=== PATIENT | female | born 1955 | race Caucasian/White ===

== ENCOUNTER 2024-12-05 19:55 | Inpatient (IN) | payer OTHER ==
[2024-12-06] MEDS ORDERED: Nitroglycerin 0.4 MG TAB (25 Tab Bottle) SL PRN (00:20)
[2024-12-06] MEDS ORDERED: Ondansetron PF 4 MG/2 ML Vial IVP PRN (02:05)
[2024-12-06] MEDS ORDERED: Dextrose 50% Abboject 50 ML SYRINGE SLOW IVP PRN (02:15)
[2024-12-06] MEDS ORDERED: Glucagon 1 MG/ML KIT IM PRN (02:15)
[2024-12-06 05:10] VITALS: BMI 45.5
[2024-12-06] MEDS: Aspirin Chewable 81 MG TAB PO SCH ×2 (06:08→09:48)
[2024-12-06 06:37] LABS: #Basophils 0.03 10x3/uL (0.0-0.2); #Eosinophils 0.19 10x3/uL (0.0-0.7); #Monocytes 0.36 10x3/uL (0.11-0.59); #Neutrophils 6.14 10x3/uL (1.40-6.50); %Basophils 0.4 % (0.0-1.0); %Eosinophils 2.4 % (0.0-10.0); %Lymphocytes 13.2 % (21.0-51.0); %Monocytes 4.6 % (0.0-10.0); %Neutrophils 79.0 % (42.0-75.0); Hematocrit 35.3 % (36.0-47.0); Hemoglobin 10.5 g/dL (12.0-16.0); Mean Corpuscular Hemoglobin 26.1 pg (27.0-31.0); Mean Corpuscular Volume 87.8 fL (78.0-98.0); Platelet Count 268 10x3/uL (130-400); Red Blood Cell (RBC) Count 4.02 mill/uL (4.20-5.40); White Blood Cell (WBC) Count 7.78 10x3/uL (4.8-10.8)
[2024-12-06 06:46] LABS: #Basophils Less than 0.03 10x3/uL (0.0-0.2); #Eosinophils 0.17 10x3/uL (0.0-0.7); #Monocytes 0.23 10x3/uL (0.11-0.59); #Neutrophils 3.42 10x3/uL (1.40-6.50); %Basophils 0.4 % (0.0-1.0); %Eosinophils 3.6 % (0.0-10.0); %Lymphocytes 19.3 % (21.0-51.0); %Monocytes 4.8 % (0.0-10.0); %Neutrophils 71.7 % (42.0-75.0); Hematocrit 35.4 % (36.0-47.0); Hemoglobin 10.7 g/dL (12.0-16.0); Mean Corpuscular Hemoglobin 26.2 pg (27.0-31.0); Mean Corpuscular Volume 86.8 fL (78.0-98.0); Platelet Count 254 10x3/uL (130-400); Red Blood Cell (RBC) Count 4.08 mill/uL (4.20-5.40); White Blood Cell (WBC) Count 4.77 10x3/uL (4.8-10.8)
[2024-12-06 07:35] LABS: ALT (SGPT) 165 U/L (Less than 34); AST (SGOT) 293 U/L (11-34); Albumin 3.1 g/dL (3.1-4.5); Alkaline Phosphatase 120 U/L (40-110); Anion Gap 15 mmol/L (10-20); BUN (Urea Nitrogen) 19 mg/dL (9.8-20.1); Bilirubin, Total 0.5 mg/dL (0.3-1.2); Calc. Creatinine Clearance 155 mL/min (70-130); Calcium 8.6 mg/dL (7.8-10.44); Carbon Dioxide 25 mmol/L (23-31); Chloride 107 mmol/L (98-107); Globulin 3.5 g/dL (2.4-3.5); Glucose 170 mg/dL (80-115); Potassium 4.0 mmol/L (3.5-5.1); Sodium 143 mmol/L (136-145)
[2024-12-06] MEDS: Heparin 5,000 UNITS/ML VIAL SC SCH (08:02)
[2024-12-06 08:16] LABS: ALT (SGPT) 534 U/L (Less than 34); AST (SGOT) 598 U/L (11-34); Albumin 3.1 g/dL (3.1-4.5); Alkaline Phosphatase 169 U/L (40-110); Anion Gap 14 mmol/L (10-20); BUN (Urea Nitrogen) 17 mg/dL (9.8-20.1); Bilirubin, Total 1.5 mg/dL (0.3-1.2); Calc. Creatinine Clearance 179 mL/min (70-130); Calcium 8.7 mg/dL (7.8-10.44); Carbon Dioxide 25 mmol/L (23-31); Cardiac Risk 1.9 (Less than 4.5); Chloride 107 mmol/L (98-107); Cholesterol 73 mg/dl (< 200 Desired); Globulin 3.6 g/dL (2.4-3.5); Glucose 124 mg/dL (80-115); HDL Cholesterol 38 mg/dL (>60 Neg Risk); LDL Cholesterol, Calculated 27 mg/dL; Magnesium 1.8 mg/dL (1.6-2.6); Potassium 4.1 mmol/L (3.5-5.1); Sodium 142 mmol/L (136-145); Triglycerides 42 mg/dL (Less than 150)
[2024-12-06] MEDS: Guaifenesin DM 100-10/5 ML UDCUP PO PRN (11:39)
[2024-12-06] MEDS ORDERED: Albuterol 2.5 MG (3 mL) NEB NEB PRN (19:00)
[2024-12-06] MEDS: Mometasone 100 MCG/Formoterol 5 MCG 120 PUFF INHALER INH SCH (19:28)
[2024-12-06] MEDS: Gabapentin 100 MG CAP PO SCH (20:35)
[2024-12-06] MEDS: Apixaban 5 MG TAB PO SCH (20:35)
[2024-12-07 05:28] LABS: #Basophils 0.03 10x3/uL (0.0-0.2); #Eosinophils 0.39 10x3/uL (0.0-0.7); #Monocytes 0.31 10x3/uL (0.11-0.59); #Neutrophils 5.71 10x3/uL (1.40-6.50); %Basophils 0.4 % (0.0-1.0); %Eosinophils 5.1 % (0.0-10.0); %Lymphocytes 15.9 % (21.0-51.0); %Monocytes 4.0 % (0.0-10.0); %Neutrophils 74.3 % (42.0-75.0); Hematocrit 38.3 % (36.0-47.0); Hemoglobin 11.7 g/dL (12.0-16.0); Mean Corpuscular Hemoglobin 26.4 pg (27.0-31.0); Mean Corpuscular Volume 86.5 fL (78.0-98.0); Platelet Count 265 10x3/uL (130-400); Red Blood Cell (RBC) Count 4.43 mill/uL (4.20-5.40); White Blood Cell (WBC) Count 7.68 10x3/uL (4.8-10.8)
[2024-12-07 06:03] LABS: ALT (SGPT) 414 U/L (Less than 34); AST (SGOT) 208 U/L (11-34); Albumin 3.2 g/dL (3.1-4.5); Alkaline Phosphatase 147 U/L (40-110); Anion Gap 13 mmol/L (10-20); BUN (Urea Nitrogen) 14 mg/dL (9.8-20.1); Bilirubin, Total 0.6 mg/dL (0.3-1.2); Calc. Creatinine Clearance 173 mL/min (70-130); Calcium 9.1 mg/dL (7.8-10.44); Carbon Dioxide 26 mmol/L (23-31); Cardiac Risk 2.6 (Less than 4.5); Chloride 106 mmol/L (98-107); Cholesterol 91 mg/dl (< 200 Desired); Globulin 3.6 g/dL (2.4-3.5); Glucose 158 mg/dL (80-115); HDL Cholesterol 35 mg/dL (>60 Neg Risk); LDL Cholesterol, Calculated 42 mg/dL; Potassium 3.9 mmol/L (3.5-5.1); Sodium 141 mmol/L (136-145); Triglycerides 68 mg/dL (Less than 150)
[2024-12-07 06:25] LABS: Thyroid Stimulating Hormone 2.2765 uIU/mL (0.35-4.94)
[2024-12-07 06:31] LABS: Hep A IgM AB NONREACTIVE (NonReactive); Hep A IgM S/CO 0.19 S/CO (0-0.79); Hep B Core IgM Index 0.11 S/CO (0-0.79); Hep B Surf Ag NONREACTIVE S/CO (NonReactive); Hep C IgG Ab NONREACTIVE S/CO (NonReactive); Hep C Index 0.06 S/CO (0-0.79)
[2024-12-07] MEDS: Theophylline 300 MG ER.TAB PO SCH (09:03)
[2024-12-07] MEDS: PNEUMOC 20-VAL CONJ-DIP CRM/PF 0.5 ML SYRINGE IM ONE (10:57)
[2024-12-07] MEDS ORDERED: Iopamidol-370 76% 500 ML MDV (1 ML CHARGE) ONE (12:49)
[2024-12-07] MEDS: Acetaminophen 325 MG TAB PO SCH (21:52)
[2024-12-08 04:49] LABS: #Basophils 0.03 10x3/uL (0.0-0.2); #Eosinophils 0.30 10x3/uL (0.0-0.7); #Monocytes 0.39 10x3/uL (0.11-0.59); #Neutrophils 5.26 10x3/uL (1.40-6.50); %Basophils 0.4 % (0.0-1.0); %Eosinophils 4.0 % (0.0-10.0); %Lymphocytes 19.2 % (21.0-51.0); %Monocytes 5.2 % (0.0-10.0); %Neutrophils 70.8 % (42.0-75.0); Hematocrit 36.5 % (36.0-47.0); Hemoglobin 10.8 g/dL (12.0-16.0); Mean Corpuscular Hemoglobin 26.0 pg (27.0-31.0); Mean Corpuscular Volume 87.7 fL (78.0-98.0); Platelet Count 260 10x3/uL (130-400); Red Blood Cell (RBC) Count 4.16 mill/uL (4.20-5.40); White Blood Cell (WBC) Count 7.44 10x3/uL (4.8-10.8)
[2024-12-08 05:29] LABS: ALT (SGPT) 241 U/L (Less than 34); AST (SGOT) 65 U/L (11-34); Albumin 3.0 g/dL (3.1-4.5); Alkaline Phosphatase 113 U/L (40-110); Anion Gap 9 mmol/L (10-20); BUN (Urea Nitrogen) 17 mg/dL (9.8-20.1); Bilirubin, Total 0.3 mg/dL (0.3-1.2); Calc. Creatinine Clearance 176 mL/min (70-130); Calcium 8.8 mg/dL (7.8-10.44); Carbon Dioxide 29 mmol/L (23-31); Chloride 106 mmol/L (98-107); Globulin 3.5 g/dL (2.4-3.5); Glucose 117 mg/dL (80-115); Potassium 3.7 mmol/L (3.5-5.1); Sodium 140 mmol/L (136-145)
[2024-12-09 05:20] LABS: #Basophils 0.03 10x3/uL (0.0-0.2); #Eosinophils 0.25 10x3/uL (0.0-0.7); #Monocytes 0.33 10x3/uL (0.11-0.59); #Neutrophils 5.15 10x3/uL (1.40-6.50); %Basophils 0.4 % (0.0-1.0); %Eosinophils 3.5 % (0.0-10.0); %Lymphocytes 19.6 % (21.0-51.0); %Monocytes 4.6 % (0.0-10.0); %Neutrophils 71.8 % (42.0-75.0); Hematocrit 37.4 % (36.0-47.0); Hemoglobin 11.3 g/dL (12.0-16.0); Mean Corpuscular Hemoglobin 26.3 pg (27.0-31.0); Mean Corpuscular Volume 87.2 fL (78.0-98.0); Platelet Count 249 10x3/uL (130-400); Red Blood Cell (RBC) Count 4.29 mill/uL (4.20-5.40); White Blood Cell (WBC) Count 7.18 10x3/uL (4.8-10.8)
[2024-12-09 05:37] LABS: ALT (SGPT) 161 U/L (Less than 34); AST (SGOT) 34 U/L (11-34); Albumin 3.0 g/dL (3.1-4.5); Alkaline Phosphatase 104 U/L (40-110); Anion Gap 14 mmol/L (10-20); BUN (Urea Nitrogen) 16 mg/dL (9.8-20.1); Bilirubin, Total 0.4 mg/dL (0.3-1.2); Calc. Creatinine Clearance 206 mL/min (70-130); Calcium 8.6 mg/dL (7.8-10.44); Carbon Dioxide 24 mmol/L (23-31); Chloride 108 mmol/L (98-107); Globulin 3.7 g/dL (2.4-3.5); Glucose 115 mg/dL (80-115); Potassium 3.9 mmol/L (3.5-5.1); Sodium 142 mmol/L (136-145)
[2024-12-10 04:47] LABS: ALT (SGPT) 112 U/L (Less than 34); AST (SGOT) 22 U/L (11-34); Albumin 3.0 g/dL (3.1-4.5); Alkaline Phosphatase 94 U/L (40-110); Anion Gap 12 mmol/L (10-20); BUN (Urea Nitrogen) 17 mg/dL (9.8-20.1); Bilirubin, Total 0.4 mg/dL (0.3-1.2); Calc. Creatinine Clearance 202 mL/min (70-130); Calcium 8.6 mg/dL (7.8-10.44); Carbon Dioxide 28 mmol/L (23-31); Chloride 106 mmol/L (98-107); Globulin 3.8 g/dL (2.4-3.5); Glucose 112 mg/dL (80-115); Potassium 3.8 mmol/L (3.5-5.1); Sodium 142 mmol/L (136-145)
[2024-12-10 05:28] LABS: #Basophils 0.04 10x3/uL (0.0-0.2); #Eosinophils 0.31 10x3/uL (0.0-0.7); #Monocytes 0.40 10x3/uL (0.11-0.59); #Neutrophils 5.40 10x3/uL (1.40-6.50); %Basophils 0.5 % (0.0-1.0); %Eosinophils 4.1 % (0.0-10.0); %Lymphocytes 19.0 % (21.0-51.0); %Monocytes 5.2 % (0.0-10.0); %Neutrophils 70.8 % (42.0-75.0); Hematocrit 38.3 % (36.0-47.0); Hemoglobin 11.8 g/dL (12.0-16.0); Mean Corpuscular Hemoglobin 26.6 pg (27.0-31.0); Mean Corpuscular Volume 86.3 fL (78.0-98.0); Platelet Count 272 10x3/uL (130-400); Red Blood Cell (RBC) Count 4.44 mill/uL (4.20-5.40); White Blood Cell (WBC) Count 7.63 10x3/uL (4.8-10.8)
[2024-12-11 06:10] LABS: %Neutrophils 72.4 % (42.0-75.0)
[2024-12-11 06:45] LABS: #Basophils 0.03 10x3/uL (0.0-0.2); #Eosinophils 0.23 10x3/uL (0.0-0.7); #Monocytes 0.33 10x3/uL (0.11-0.59); #Neutrophils 5.44 10x3/uL (1.40-6.50); %Basophils 0.4 % (0.0-1.0); %Eosinophils 3.1 % (0.0-10.0); %Lymphocytes 19.4 % (21.0-51.0); %Monocytes 4.4 % (0.0-10.0); Hematocrit 37.0 % (36.0-47.0); Hemoglobin 11.1 g/dL (12.0-16.0); Mean Corpuscular Hemoglobin 26.6 pg (27.0-31.0); Mean Corpuscular Volume 88.5 fL (78.0-98.0); Platelet Count 270 10x3/uL (130-400); Red Blood Cell (RBC) Count 4.18 mill/uL (4.20-5.40); White Blood Cell (WBC) Count 7.51 10x3/uL (4.8-10.8)
[2024-12-11 06:57] LABS: ALT (SGPT) 78 U/L (Less than 34); AST (SGOT) 16 U/L (11-34); Albumin 3.0 g/dL (3.1-4.5); Alkaline Phosphatase 81 U/L (40-110); Anion Gap 12 mmol/L (10-20); BUN (Urea Nitrogen) 16 mg/dL (9.8-20.1); Bilirubin, Total 0.3 mg/dL (0.3-1.2); Calc. Creatinine Clearance 173 mL/min (70-130); Calcium 8.8 mg/dL (7.8-10.44); Carbon Dioxide 26 mmol/L (23-31); Chloride 108 mmol/L (98-107); Globulin 3.6 g/dL (2.4-3.5); Glucose 161 mg/dL (80-115); Potassium 3.8 mmol/L (3.5-5.1); Sodium 142 mmol/L (136-145)
[2024-12-11 13:05] VITALS: BP 142/66; TEMP 98
== END 2024-12-11 13:15 | DRG 313 ==
LOC: ERS 19:55 → INTOOBSV 12-06 00:20 → 2NO 12-06 00:20 → OBSVTOIN 12-06 00:20 → UNDOADMOB 12-06 00:20 → OBSVTOIN 12-07 13:45 → 2NO 12-07 13:45
PROVIDERS: ADMIT Internal Medicine; ATTEND Student in an Organized Health Care Education/Training Program
DX: R07.89 Other chest pain (principal); I48.20 Chronic atrial fibrillation, unspecified; J96.11 Chronic respiratory failure with hypoxia; E03.9 Hypothyroidism, unspecified; E11.9 Type 2 diabetes mellitus without complications; F32.A Depression, unspecified; F03.90 Unspecified dementia, unspecified severity, without behavioral disturbance, psychotic disturbance, mood disturbance, and anxiety; J45.909 Unspecified asthma, uncomplicated; R74.01 Elevation of levels of liver transaminase levels; M79.7 Fibromyalgia; G47.33 Obstructive sleep apnea (adult) (pediatric); K80.20 Calculus of gallbladder without cholecystitis without obstruction; F43.22 Adjustment disorder with anxiety; M19.90 Unspecified osteoarthritis, unspecified site; Z79.899 Other long term (current) drug therapy; Z91.018 Allergy to other foods; Z79.4 Long term (current) use of insulin; Z79.890 Hormone replacement therapy; Z79.52 Long term (current) use of systemic steroids
CPT/HCPCS: 36415; 36416; 71045; 74160; 76705; 80053; 80061; 80074; 83036; 83735; 83880; 84443; 84484; 85025; 93005; 93306; 94664; 94760; 96372; G0378; J1644; J1815; Q9967